=== PATIENT | female | born 2000 | race Two or more races ===

== ENCOUNTER 2021-05-31 18:04 | Outpatient (CLI) | payer OTHER ==
[2021-05-31] MEDS ORDERED: PRENATAL TABLE1 EAC3 PO (19:15)
[2021-05-31] MEDS ORDERED: IRON325 MG PO (19:21)
== END 2021-06-01 18:35 | disposition home or self-care (01) ==
LOC: OBS/DEL 18:04
PROVIDERS: ATTEND Specialist
DX: O24.419 Gestational diabetes mellitus in pregnancy, unspecified control (principal); O47.03 False labor before 37 completed weeks of gestation, third trimester; Z3A.33 33 weeks gestation of pregnancy

== ENCOUNTER 2021-06-12 10:11 | Outpatient (CLI) | payer OTHER ==
[~2021-06-12 10:11] MED LIST: IRON325 MG PO; PRENATAL TABLE1 EAC3 PO
== END 2021-06-12 10:45 | disposition home or self-care (01) ==
LOC: PRENATAL 10:11
PROVIDERS: ATTEND Obstetrics & Gynecology Maternal & Fetal Medicine
DX: O26.849 Uterine size-date discrepancy, unspecified trimester (principal); O35.0XX0 Maternal care for (suspected) central nervous system malformation in fetus, not applicable or unspecified; O36.8199 Decreased fetal movements, unspecified trimester, other fetus; O41.00X0 Oligohydramnios, unspecified trimester, not applicable or unspecified

== ENCOUNTER 2021-07-08 06:01 | Inpatient (IN) | payer OTHER ==
[~2021-07-08] VITALS: Ht 154.9 cm; Wt 53.5 kg
[2021-07-09] MEDS ORDERED: FUSION PLUS CA1 EACH (13:59)
== END 2021-07-10 11:24 | disposition home or self-care (01) | DRG 807 ==
LOC: OB/GYN 06:01 → LDR 06:01 → OB/GYN 14:33
PROVIDERS: ADMIT Specialist; ATTEND Specialist
PROC: 10E0XZZ Delivery of Products of Conception, External Approach (ICD-10-PCS; principal; 2021-07-08)
PROC: 0W8NXZZ Division of Female Perineum, External Approach (ICD-10-PCS; 2021-07-08)
PROC: 4A1HXCZ Monitoring of Products of Conception, Cardiac Rate, External Approach (ICD-10-PCS; 2021-07-08)
DX: O24.410 Gestational diabetes mellitus in pregnancy, diet controlled (principal); Z37.0 Single live birth; Z20.822 Contact with and (suspected) exposure to COVID-19; Z3A.39 39 weeks gestation of pregnancy

== ENCOUNTER 2022-09-09 08:10 | Outpatient (CLI) | payer OTHER ==
[~2022-09-09 08:10] MED LIST changes: +FUSION PLUS CA1 EACH
== END 2022-09-09 11:34 | disposition home or self-care (01) ==
LOC: PRENATAL 08:10
PROVIDERS: ATTEND Obstetrics & Gynecology Maternal & Fetal Medicine
DX: O26.849 Uterine size-date discrepancy, unspecified trimester (principal); O26.879 Cervical shortening, unspecified trimester; Z3A.23 23 weeks gestation of pregnancy

== ENCOUNTER 2022-10-08 08:17 | Outpatient (CLI) | payer OTHER | END 2022-10-08 10:21 | disposition home or self-care (01) | LOC: PRENATAL 08:17 | PROVIDERS: ATTEND Obstetrics & Gynecology Maternal & Fetal Medicine | DX: O26.849 Uterine size-date discrepancy, unspecified trimester (principal); O26.879 Cervical shortening, unspecified trimester; Z3A.27 27 weeks gestation of pregnancy ==

== ENCOUNTER 2022-10-08 11:14 | Inpatient (IN) | payer OTHER ==
[~2022-10-08] VITALS: Ht 154.9 cm; Wt 49.9 kg
[2022-10-14] MEDS ORDERED: PROGESTERONE200 MG (16:06)
== END 2022-10-17 21:01 | disposition home or self-care (01) | DRG 832 ==
LOC: LDR 11:14 → OB/GYN 10-10 15:40
PROVIDERS: ADMIT Specialist; ATTEND Specialist
PROC: 4A1HXCZ Monitoring of Products of Conception, Cardiac Rate, External Approach (ICD-10-PCS; principal; 2022-10-08)
PROC: BY4FZZZ Ultrasonography of Third Trimester, Single Fetus (ICD-10-PCS; 2022-10-15)
PROC: BU4CZZZ Ultrasonography of Uterus and Ovaries (ICD-10-PCS; 2022-10-15)
DX: O26.872 Cervical shortening, second trimester (principal); O47.03 False labor before 37 completed weeks of gestation, third trimester; Z3A.27 27 weeks gestation of pregnancy; Z20.822 Contact with and (suspected) exposure to COVID-19

== ENCOUNTER 2022-11-11 11:05 | Inpatient (IN) | payer OTHER ==
[~2022-11-11] VITALS: Ht 154.9 cm; Wt 51.7 kg
[~2022-11-11 11:05] MED LIST changes: +PROGESTERONE200 MG
[2022-11-12] MEDS ORDERED: INTEGRA PLUS C1 EAC1 (09:30)
== END 2022-11-22 14:00 | disposition home or self-care (01) | DRG 805 ==
LOC: LDR 11:05 → OB/GYN 11:05 → LDR 12:13 → OB/GYN 11-13 17:20
PROVIDERS: ADMIT Specialist; ATTEND Specialist
PROC: 4A1HXCZ Monitoring of Products of Conception, Cardiac Rate, External Approach (ICD-10-PCS; 2022-11-11)
PROC: BY4FZZZ Ultrasonography of Third Trimester, Single Fetus (ICD-10-PCS; 2022-11-11)
PROC: BY4FZZZ Ultrasonography of Third Trimester, Single Fetus (ICD-10-PCS; 2022-11-18)
PROC: 10E0XZZ Delivery of Products of Conception, External Approach (ICD-10-PCS; principal; 2022-11-20)
PROC: 0UQG7ZZ Repair Vagina, Via Natural or Artificial Opening (ICD-10-PCS; 2022-11-20)
DX: O42.113 Preterm premature rupture of membranes, onset of labor more than 24 hours following rupture, third trimester (principal); O41.1230 Chorioamnionitis, third trimester, not applicable or unspecified; Z37.0 Single live birth; O60.14X0 Preterm labor third trimester with preterm delivery third trimester, not applicable or unspecified; O41.1430 Placentitis, third trimester, not applicable or unspecified; O41.03X0 Oligohydramnios, third trimester, not applicable or unspecified; O26.873 Cervical shortening, third trimester; O71.4 Obstetric high vaginal laceration alone; O26.843 Uterine size-date discrepancy, third trimester; O36.8130 Decreased fetal movements, third trimester, not applicable or unspecified; Z3A.32 32 weeks gestation of pregnancy